=== PATIENT | male | born 1960 | race Caucasian/White ===

== ENCOUNTER 2021-01-10 20:27 | Observation (INO) ==
[2021-01-10] MEDS ORDERED: Isovue-370 500 ML BOTTLE IVP ONE (21:07)
[2021-01-10 21:19] LABS: Basophils # 0.1 K/mcL (0.0-0.2); Basophils % 0.7 %; Eosinophils # 0.1 K/mcL (0.0-0.6); Eosinophils % 0.5 %; Hematocrit 46.6 % (37.5-50.1); Immature Granulocytes % 0.4 % (0-4); Lymphocytes # 0.7 K/mcL (0.6-4.6); Mean Corpuscular HGB Conc 32.2 g/dL (31.6-35.5); Mean Corpuscular Hemoglobin 27.7 pg (28.0-33.3); Mean Corpuscular Volume 86.1 fL (83.0-100.0); Monocytes # 0.8 K/mcL (0.0-1.3); Monocytes % 7.6 %; Neutrophils # 8.7 K/mcL (1.6-8.9); Platelet Count 203 K/mcL (140-400); Red Blood Count 5.41 M/mcL (4.19-5.50); Red Cell Distribution Width 13.8 % (11.5-14.5); Segmented Neutrophils % 83.8 %; White Blood Count 10.4 K/mcL (4.3-11.1)
[2021-01-10 21:41] LABS: BUN/Creatinine Ratio 13 (6-26); Blood Urea Nitrogen 17 mg/dL (6-20); Calcium 9.3 mg/dL (8.6-10.3); Carbon Dioxide 22 mEq/L (23-29); Chloride 104 mEq/L (98-107); Glucose 133 mg/dL (70-105); Osmolality,Calculated 285 (280-300); Potassium 3.9 mEq/L (3.5-5.1); Sodium 136 mEq/L (136-145); Troponin I < 0.03 ng/mL (< 0.04); eGFR For African Americans > 60 (> 60); eGFR For Non-African Americans 58 (> 60)
[2021-01-10] MEDS ORDERED: *HR* Propofol 200 MG/20 ML VIAL IVP ONE (23:09)
[2021-01-10 23:44] LABS: Adenovirus Not Detected (Not Detect); Coronavirus 229E Not Detected (Not Detect); Coronavirus HKU1 Not Detected (Not Detect); Coronavirus NL63 Not Detected (Not Detect); Coronavirus OC43 Not Detected (Not Detect); Human Metapneumovirus Not Detected (Not Detect); Human Rhinovirus/Enterovirus Not Detected (Not Detect); Influenza A Subtype 2009 H1 Not Detected (Not Detect); Influenza B Not Detected (Not Detect); Parainfluenza Virus 1 Not Detected (Not Detect); Parainfluenza Virus 2 Not Detected (Not Detect); Parainfluenza Virus 3 Not Detected (Not Detect); Parainfluenza Virus 4 Not Detected (Not Detect); Respiratory Syncytial Virus Not Detected (Not Detect); SARS-CoV-2 Not Detected (Not Detect)
[2021-01-10 23:45] LABS: Bordetella Pertussis Not Detected (Not Detect); Chlamydophila pneumoniae Not Detected (Not Detect); Mycoplasma pneumoniae Not Detected (Not Detect)
[2021-01-11] MEDS ORDERED: Aspirin 325 MG TABLET PO ONE (00:32)
[2021-01-11] MEDS ORDERED: Naloxone 0.4 MG/ML INJ IVP PRN (01:39)
[2021-01-11] MEDS ORDERED: Ondansetron 4 MG/2 ML VIAL IVP PRN (01:39)
[2021-01-11] MEDS ORDERED: Acetaminophen 325 MG TABLET PO PRN (01:39)
[2021-01-11] MEDS ORDERED: Melatonin 3 MG TABLET PO PRN (01:39)
[2021-01-11] MEDS ORDERED: *HR* Dextrose 50 % in Water (Vial) 50 ML VIAL IVP PRN (03:02)
[2021-01-11] MEDS ORDERED: Dextrose Gel 15 GM/37.5 ML TUBE PO PRN ×2 (03:02)
[2021-01-11] MEDS ORDERED: D5% in Water 1,000 ML IVC PRN (03:02)
[2021-01-11] MEDS: Ringers Solution, Lactated 1,000 ML IVC SCH ×3 (05:17→17:53)
[2021-01-11] MEDS: Insulin LISPRO 300 UNITS/3 ML VIAL SUBQ SCH ×3 (06:02→17:23)
[2021-01-11 06:43] LABS: Basophils % 0.4 %; Eosinophils % 0.1 %; Hematocrit 45.7 % (37.5-50.1); Hemoglobin 14.5 g/dL (12.9-16.9); Immature Granulocytes % 0.4 % (0-4); Lymphocytes # 0.6 K/mcL (0.6-4.6); Lymphocytes % 5.4 %; Mean Corpuscular HGB Conc 31.7 g/dL (31.6-35.5); Mean Corpuscular Hemoglobin 27.1 pg (28.0-33.3); Mean Corpuscular Volume 85.3 fL (83.0-100.0); Mean Platelet Volume 11.1 fL (9.4-12.4); Monocytes # 0.9 K/mcL (0.0-1.3); Monocytes % 8.1 %; Neutrophils # 9.4 K/mcL (1.6-8.9); Platelet Count 191 K/mcL (140-400); Red Blood Count 5.36 M/mcL (4.19-5.50); Red Cell Distribution Width 13.9 % (11.5-14.5); Segmented Neutrophils % 85.6 %; White Blood Count 10.9 K/mcL (4.3-11.1)
[2021-01-11 06:56] LABS: INR 1.2; Prothrombin Time 13.3 Seconds (9.4-12.1)
[2021-01-11 07:00] LABS: Alanine Aminotransferase 26 Units/L (7-52); Albumin 4.3 g/dL (3.5-5.7); Albumin/Globulin Ratio 1.9 (1.1-2.2); Alkaline Phosphatase 55 Units/L (34-104); Aspartate Amino Transferase 16 Units/L (13-39); BUN/Creatinine Ratio 13 (6-26); Bilirubin,Total 0.8 mg/dL (0.3-1.0); Blood Urea Nitrogen 15 mg/dL (6-20); Calcium 8.8 mg/dL (8.6-10.3); Carbon Dioxide 24 mEq/L (23-29); Chloride 102 mEq/L (98-107); Cholesterol 94 mg/dL (< 200); Globulin 2.3 g/dL (2.4-3.5); Glucose 153 mg/dL (70-105); HDL Cholesterol 31 mg/dL (40-59); LDL Cholesterol,Calculated 47 mg/dL (< 100); Magnesium 1.9 mg/dL (1.6-2.6); Osmolality,Calculated 284 (280-300); Sodium 135 mEq/L (136-145); Total Protein 6.6 g/dL (6.4-8.9); Triglycerides 79 mg/dL (< 150); eGFR For African Americans > 60 (> 60); eGFR For Non-African Americans > 60 (> 60)
[2021-01-11] MEDS ORDERED: Regadenoson 0.4 MG/5 ML SYRINGE IVP ONE (07:27)
[2021-01-11 07:33] LABS: Lactate Dehydrogenase 164 Units/L (140-271)
[2021-01-11 07:41] LABS: Adenovirus F 40/41 PCR Not detected (Not detect); Astrovirus PCR Not detected (Not detect); C.difficile Toxin A/B Gene PCR Not detected (Not detect); Cryptosporidium by PCR Not detected (Not detect); Cyclospora cayetanensis PCR Not detected (Not detect); E. coli O157 by PCR Not detected (Not detect); Entamoeba histolytica PCR Not detected (Not detect); Enteroaggregative E.coli(EAEC) Not detected (Not detect); Enteropathogenic E.coli(EPEC) Not detected (Not detect); Enterotoxigenic E.coli (ETEC) Not detected (Not detect); Giardia lamblia PCR Not detected (Not detect); Norovirus GI/GII PCR Not detected (Not detect); Plesiomonas shigelloides PCR Not detected (Not detect); Rotavirus A PCR Not detected (Not detect); Salmonella PCR Not detected (Not detect); Sapovirus PCR Not detected (Not detect); Shig/EnteroinvasiveE coli EIEC Not detected (Not detect); Shigalike tox-prod E coli STEC Not detected (Not detect); Vibrio PCR Not detected (Not detect); Vibrio cholerae PCR Not detected (Not detect); Yersinia enterocolitica PCR Not detected (Not detect)
[2021-01-11 07:45] LABS: Campylobacter by PCR DETECTED (Not detect)
[2021-01-11 09:45] LABS: C-Reactive Protein 45 mg/L (Less than 10)
[2021-01-11] MEDS: Aspirin Enteric Coated 81 MG Tablet PO SCH (11:03)
[2021-01-11] MEDS ORDERED: traZODone 50 MG TABLET PO ONE (21:00)
[2021-01-11] MEDS ORDERED: Insulin LISPRO 300 UNITS/3 ML VIAL SUBQ SCH (21:00)
[2021-01-12] MEDS: Ringers Solution, Lactated 1,000 ML IVC SCH (03:06)
[2021-01-12 07:33] VITALS: BP 132/83
[2021-01-12] MEDS: Insulin LISPRO 300 UNITS/3 ML VIAL SUBQ SCH ×2 (08:09→11:25)
[2021-01-12] MEDS: Aspirin Enteric Coated 81 MG Tablet PO SCH (08:11)
== END 2021-01-12 11:56 | disposition home or self-care (01) ==
LOC: 3BNU 20:27 → EMEROOARM 20:27 → 3BNU 01-11 01:30
PROVIDERS: ADMIT Internal Medicine; ATTEND Internal Medicine